=== PATIENT | male | born 1970 | race Caucasian/White ===

== ENCOUNTER → 2016-12-08 | Outpatient (CLI) | payer OTHER ==
--- NOTE | 2016-12-08 12:52 | MR ---
EXAMINATION TYPE: MR fegn wo con DATE OF EXAM: 12/08/2016 12:32 PM COMPARISON: 01/01/2008 HISTORY: Cervicalgia, lumbago. Multiplanar MultiSpin echo imaging of the cervical spine was performed. Comparison: none C2-C3: No evidence for degenerative disc disease. No disc bulge/herniation or protrusion. No Canal stenosis. Foramina are patent bilaterally. C3-C4: No evidence for degenerative disc disease. No disc bulge/herniation or protrusion. No Canal stenosis. Foramina are patent bilaterally. C4-C5: No evidence for degenerative disc disease. No disc bulge/herniation or protrusion. No Canal stenosis. Foramina are patent bilaterally. C5-C6: There is mild disc desiccation noted. Mild posterior central disc bulge without brett herniati on. Minimal effacement ventral thecal sac. No evidence for central stenosis. Visualized foramina are patent bilaterally. C6-C7: Mild disc desiccation noted. Posterocentral disc herniation subligamentous in location effaces the ventral thecal sac. No evidence for cord contact or central stenosis. No significant foraminal e ncroachment. C7-T1: No evidence for degenerative disc disease. No disc bulge/herniation or protrusion. No Canal stenosis. Foramina are patent bilaterally. Cervical segments are intact. There is normal alignment. Cervical spinal cord is of normal signal. Craniovertebral junction relationships are within normal limits. IMPRESSION: 1. Disc desiccation as discussed. 2. Mild subligamentous disc herniation at C6-7. EXAMINATION TYPE: MR feng wo con DATE OF EXAM: 12/08/2016 12:32 PM COMPARISON: 06/25/2011 HISTORY: Cervicalgia, lumbago. Multiplanar, MultiSpin echo imaging of the lumbar spine was performed. L1-L2: There is moderate disc desiccation identified. No disc herniation protrusion or central stenos is. Foramina are patent. L2-L3: Normal disc appearance without desiccation. No herniation, protrusion or disc bulging. No ca nal stenosis is present. Foramina are patent bilaterally. L3-L4: Normal disc appearance without desiccation. No herniation, protrusion or disc bulging. No ca nal stenosis is present. Foramina are patent bilaterally. L4-L5: There is moderate disc desiccation noted. Posterocentral subligamentous disc herniation is not ed essentially unchanged from prior study. Mild effacement ventral thecal sac. No evidence for centra l stenosis or lateral recess stenosis. Foramina are patent bilaterally. L5-S1: Moderate disc desiccation identified. Left paracentral disc herniation with mild extrusion not ed. A mild left lateral recess stenosis no evidence for foraminal encroachment. No central stenosis i dentified. Findings are mildly progressive relative to the prior study. Lumbar segments are intact. No paraspinal masses are identified. Conus medullaris has a normal appe arance. IMPRESSION: 1. Degenerative disc disease as discussed. 2. Stable posterior central disc herniation L4-5. 3. Left paracentral disc herniation L5-S1 with mild extrusion. Slight interval progression suggested. Suspect left lateral recess stenosis.
== END | disposition home or self-care (01) ==
LOC: RADMRIMAIN 11:41
PROVIDERS: ATTEND Psychiatry & Neurology Neurology
DX: M51.27 Other intervertebral disc displacement, lumbosacral region (principal); M51.36 Other intervertebral disc degeneration, lumbar region; M50.223 Other cervical disc displacement at C6-C7 level
CPT/HCPCS: 72141; 72148

== ENCOUNTER 2020-11-04 11:56 | Emergency (ER) | payer BC, OTHER ==
[2020-11-04 12:14] VITALS: BP 140/89; PULSE 95; RESP 18; TEMP 98.4
[2020-11-04] MEDS ORDERED: DIPH,PERTUS(ACELL)TETVAC-LF 0.5 ML VIAL IM ONE (12:22)
[2020-11-04] MEDS ORDERED: FLUORESCEIN STRIPS 1 MG STRIP RIGHT EYE ONE (12:23)
[2020-11-04] MEDS ORDERED: PROPARACAINE 0.5% OPHTH DROPS 15 ML BTL RIGHT EYE STA (12:23)
--- NOTE | 2020-11-04 12:28 | ED ---
General Adult HPI - General Chief complaint: Eye Problems Stated complaint: Something in Right eye Time Seen by Provider: 11/04/20 12:10 Source: patient, RN notes reviewed, old records reviewed Mode of arrival: ambulatory Limitations: no limitations - History of Present Illness Initial comments: This is a 50-year-old male who presents emergency room complaining of right eye pain. Patient states he was working in her car seat thinks he got something in it. Patient states he thinks is probably metal but is not sure. Patient states irritation is gotten worse overnight. Patient states he also does not have a tetanus up-to-date. Patient denies any other problems or injuries. Patient denies any blurred vision chest pain in the eye. - Related Data Home Medications Medication Instructions Recorded Confirmed Ibuprofen [Motrin Ib] 600 - 800 mg PO Q8H PRN 11/04/20 11/04/20 Allergies Allergy/AdvReac Type Severity Reaction Status Date / Time No Known Allergies Allergy Verified 11/04/20 12:46 Review of Systems ROS Statement: Those systems with pertinent positive or pertinent negative responses have been documented in the HPI. ROS Other: All systems not noted in ROS Statement are negative. Past Medical History Past Medical History: Hypertension Additional Past Medical History / Comment(s): chronic back pain History of Any Multi-Drug Resistant Organisms: None Reported Past Surgical History: Appendectomy, Orthopedic Surgery Past Psychological History: Depression Smoking Status: Current every day smoker Past Alcohol Use History: Occasional Past Drug Use History: None Reported General Exam - General Exam Comments Initial Comments: GENERAL Patient is well-developed and well-nourished. Patient is in mild distress. EYES Patient's pupils are equal and round. Patient is quite a lot of conjunctival injection. Also foreign body can be seen at 8 o'clock position. SKIN Unremarkable NEURO The patient is alert and oriented 3 PYSCH Patient has normal interpersonal interactions. MUSCULOSKELETAL Patient's extremities have full range of motion. Limitations: no limitations Course Vital Signs 11/04/20 12:09 Temperature 98.4 F Pulse Rate 95 Respiratory 18 Rate Blood Pressure 140/89 O2 Sat by Pulse 100 Oximetry Procedures - Forgein Body Removal Eye Site: Right Anesthetic Used: Proparacaine Eye Exam Technique: Valdovinos Lamp, Fluorescein Foreign Body Suspected: Metal Forgein Body Removal Technique: Needle Remaining Debris: No Patient Tolerated: well Disposition Clinical Impression: Foreign body, eye, Corneal abrasion Disposition: HOME SELF-CARE Instructions (If sedation given, give patient instructions): Corneal Abrasion (ED) Additional Instructions: Patient should follow-up with ophthalmology if he is having any further problems tomorrow and beyond. Patient use tobramycin in the right eye every 4-6 hours for 3 days Is patient prescribed a controlled substance at d/c from ED?: No Time of Disposition: 13:00
[2020-11-04] MEDS ORDERED: TOBRAMYCIN 0.3% OPHTH DROPS 5 ML BTL RIGHT EYE STA (13:03)
== END 2020-11-04 13:16 | disposition home or self-care (01) ==
LOC: EC 11:56
DX: T15.01XA Foreign body in cornea, right eye, initial encounter (principal); G89.29 Other chronic pain; M54.9 Dorsalgia, unspecified; F17.200 Nicotine dependence, unspecified, uncomplicated; Z23 Encounter for immunization; Y93.89 Activity, other specified
CPT/HCPCS: 65220; 90471; 90715; 99283

== ENCOUNTER 2025-01-23 13:35 | Emergency (ER) | payer BC, OTHER ==
[2025-01-23 13:43] VITALS: BP 146/75; PULSE 79; RESP 20; TEMP 97.5
--- NOTE | 2025-01-23 14:42 | ED ---
ENT HPI - General Chief complaint: Dental/Oral Stated complaint: L Side Facial Swelling Time Seen by Provider: 01/23/25 14:38 Source: patient Mode of arrival: ambulatory Limitations: no limitations - History of Present Illness Initial comments: 54-year-old male presenting to the ER for evaluation of dental pain. Patient states he has been having pain to his left lower jaw as he has a fractured tooth on that side. He states he woke up this morning and noticed mild swelling to the left side of his face which prompted emergency department visit. Patient believes he has an infection. He denies any fevers, chills, tongue or throat swelling. Patient states he is planning on contacting a dentist tomorrow to get an appointment. No other complaints. - Related Data Home Medications Medication Instructions Recorded Confirmed Ibuprofen [Motrin Ib] 600 - 800 mg PO Q8H PRN 11/04/20 11/04/20 Previous Rx's Medication Instructions Recorded Amoxic-Pot Clav 875-125Mg 1 tab PO Q12HR 10 Days #20 tab 01/23/25 [Augmentin 875-125] Allergies Allergy/AdvReac Type Severity Reaction Status Date / Time No Known Allergies Allergy Verified 01/23/25 13:43 Review of Systems ROS Statement: Those systems with pertinent positive or pertinent negative responses have been documented in the HPI. ROS Other: All systems not noted in ROS Statement are negative. Past Medical History Past Medical History: Hypertension Additional Past Medical History / Comment(s): chronic back pain History of Any Multi-Drug Resistant Organisms: None Reported Past Surgical History: Appendectomy, Orthopedic Surgery Past Psychological History: Depression Smoking Status: Former smoker Past Alcohol Use History: Occasional Past Drug Use History: None Reported General Exam Limitations: no limitations General appearance: alert, in no apparent distress ENT exam: Present: normal oropharynx, mucous membranes moist (fractured left lower molar. mild edema and tenderness to left lower jaw. No tongue, lip or oropharynx edema. no uvular deviation) Respiratory exam: Present: normal lung sounds bilaterally. Absent: respiratory distress, wheezes, rales, rhonchi, stridor Cardiovascular Exam: Present: regular rate, normal rhythm, normal heart sounds. Absent: systolic murmur, diastolic murmur, rubs, gallop, clicks Neurological exam: Present: alert, oriented X3, CN II-XII intact Skin exam: Present: warm, dry, intact, normal color. Absent: rash Course Vital Signs 01/23/25 13:40 Temperature 97.5 F L Pulse Rate 79 Respiratory 20 Rate Blood Pressure 146/75 O2 Sat by Pulse 100 Oximetry Medical Decision Making - Medical Decision Making Was pt. sent in by a medical professional or institution ([facility] Pacheco, STEEPING PRESS OPERATOR, urgent care, hospital, or skilled nursing...) When possible be specific @ -No Did you speak to anyone other than the patient for history (EMS, parent, family, police, friend...)? What history was obtained from this source @ -No Did you review nursing and triage notes (agree or disagree)? Why? @ -I reviewed and agree with nursing and triage notes Were old charts reviewed (outside hosp., previous admission, EMS record, old EKG, old radiological studies, urgent care reports/EKG's, skilled nursing records)? Report findings @ -No old charts were reviewed Differential Diagnosis (chest pain, altered mental status, abdominal pain women, abdominal pain men, vaginal bleeding, weakness, fever, dyspnea, syncope, headache, dizziness, GI bleed, back pain, seizure, CVA, palpatations, mental health, musculoskeletal)? @ -Dental infection, fractured tooth, abscess, Ludwigs angina.. this list is not meant to be all inclusive EKG interpreted by me (3pts min.). @ None done X-rays interpreted by me (1pt min.). @ -None done CT interpreted by me (1pt min.). @ -None done U/S interpreted by me (1pt. min.). @ -None done What testing was considered but not performed or refused? (CT, X-rays, U/S, labs)? Why? @ -None What meds were considered but not given or refused? Why? @ -None Did you discuss the management of the patient with other professionals (professionals i.e. [place] Pacheco, STEEPING PRESS OPERATOR, lab, RT, psych nurse, social media marketer, model maker apprentice, teacher, police liaison officer, hospice case manager)? Give summary @ -No Was smoking cessation discussed for >3mins.? @ -No Was critical care preformed (if so, how long)? @ -No Were there social determinants of health that impacted care today? How? (Homelessness, low income, unemployed, alcoholism, drug addiction, transportation, low edu. Level, literacy, decrease access to med. care, correction, rehab)? @ -No Was there de-escalation of care discussed even if they declined (Discuss DNR or withdrawal of care, Hospice)? DNR status @ -No What co-morbidities impacted this encounter? (DM, HTN, Smoking, COPD, CAD, Cancer, CVA, ARF, Chemo, Hep., AIDS, mental health diagnosis, sleep apnea, morbid obesity)? @ -None Was patient admitted / discharged? Hospital course, mention meds given and route, prescriptions, significant lab abnormalities, going to OR and other pertinent info. @ -Discharge. 54-year-old male presenting the ER for evaluation of dental pain. Upon my history and physical exam completed. Exam remarkable for a fracture to the left lower jaw. There is mild swelling to the left lower jaw. There is no tongue, throat, lip edema. No uvular deviation. No drainable abscess. Patient will be started on Augmentin, first dose in the ER. I advised [id number] ibuprofen and Tylenol for pain control. Patient was discharged with a Tylenol 3 starter pack for pain control. Return parameters discussed. Patient discharged in stable condition with follow-up to a dentist. Patient is eager for discharge. Patient states he is going to call tomorrow for appointment. Patient verbally expressed understanding agreement with discharge. Case discussed with ED attending, Dr. Willis. Undiagnosed new problem with uncertain prognosis? @ -No Drug Therapy requiring intensive monitoring for toxicity (Heparin, Nitro, Insulin, Cardizem)? @ -No Were any procedures done? @ -No Diagnosis/symptom? @ -Dental infection/fractured tooth Acute, or Chronic, or Acute on Chronic? @ -Acute Uncomplicated (without systemic symptoms) or Complicated (systemic symptoms)? @ [Uncomplicated Side effects of treatment? @ -No Exacerbation, Progression, or Severe Exacerbation? @ -No Poses a threat to life or bodily function? How? (Chest pain, [place], [place], pneumonia, PE, COPD, DKA, ARF, appy, cholecystitis, CVA, Diverticulitis, Homicidal, Suicidal, threat to staff... and all critical care pts) @ -No Disposition Clinical Impression: Fracture of tooth, Dental infection Disposition: HOME SELF-CARE Condition: Stable Instructions (If sedation given, give patient instructions): Toothache (ED) Additional Instructions: Take Augmentin as prescribed. Report back to the ER for any increase in swelling to area of concern/tongue or throat swelling. Return to the ER for any new or worsening concerns. Prescriptions: Amoxic-Pot Clav 875-125Mg [Augmentin 875-125] 1 tab PO Q12HR 10 Days #20 tab Is patient prescribed a controlled substance at d/c from ED?: No Referrals: Mohsen Mccartney DO [Primary Care Provider] - 1-2 days Francisco Cortes DMD [STAFF PHYSICIAN] - 1-2 days Yareli Otoole DDS [STAFF PHYSICIAN] - 1-2 days Time of Disposition: 14:41
[2025-01-23] MEDS: ACET/COD 300 MG/30 MG STARTER PACK 6 TAB BTL PO STA (14:49)
[2025-01-23] MEDS: AMOXIC-POT CLAV 875-125MG 1 EACH TAB PO STA (14:50)
== END 2025-01-23 14:57 | disposition home or self-care (01) ==
LOC: EC 13:35
DX: K04.7 Periapical abscess without sinus (principal); S02.5XXA Fracture of tooth (traumatic), initial encounter for closed fracture; Z87.891 Personal history of nicotine dependence; X58.XXXA Exposure to other specified factors, initial encounter
CPT/HCPCS: 99282